=== PATIENT | male | born 1950 | race Asian ===

== ENCOUNTER 2019-01-04 19:38 | Emergency (ER) | payer BC, OTHER ==
[~2019-01-04] VITALS: Ht 167.6 cm; Wt 56.7 kg
[2019-01-04 19:40] VITALS: BP_SYST 120
--- NOTE | 2019-01-04 20:44 | NUR ---
Patient to ER bed 7 to gown for evaluation. Side rails up. Report given to Ilan COLON.
--- NOTE | 2019-01-04 20:54 | NUR ---
DONALD Naranjo at bedside examining patient.
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
[2019-01-04] MEDS: CYCLOBENZAPRINE HCL 10 MG TABLET (FLEXERIL) PO ONE (21:03)
[2019-01-04] MEDS: IBUPROFEN 400 MG TABLET PO ONE (21:03)
[2019-01-04 21:11] VITALS: BP_SYST 120
--- NOTE | 2019-01-04 21:11 | NUR ---
Patient given written and verbal discharge instructions and verbalizes understanding. ER MD discussed with patient the results and treatment provided. Patient in stable condition. ID arm band removed. Patient educated on pain management and to follow up with PMD. Pain Scale 0/10. Opportunity for questions provided and answered. Medication side effect fact sheet provided.
== END 2019-01-04 21:11 | disposition home or self-care (01) ==
LOC: SED 19:38
DX: S46.812A Strain of other muscles, fascia and tendons at shoulder and upper arm level, left arm, initial encounter (principal); R51 Headache; V43.52XA Car driver injured in collision with other type car in traffic accident, initial encounter; Y93.89 Activity, other specified; Y92.410 Unspecified street and highway as the place of occurrence of the external cause; Y99.8 Other external cause status
CPT/HCPCS: 70450-TC; 99284